=== PATIENT | male | born 1960 | race Caucasian/White ===

== ENCOUNTER 2022-02-17 09:43 | Day surgery (SDC) | payer MEDICARE ==
[~2022-02-17] VITALS: Ht 172.7 cm; Wt 100.9 kg
[2022-02-17] MEDS ORDERED: LIPITOR20 MG PO (10:47)
[2022-02-17] MEDS ORDERED: CBD OIL PO (10:48)
[2022-02-17 10:49] VITALS: BP 124/88; PULSE 85; TEMP 98.9
[2022-02-17 13:30] VITALS: BP 149/87; PULSE 79
[2022-02-17 13:45] VITALS: BP 157/85; PULSE 81
[2022-02-17 15:40] VITALS: BP 138/74; PULSE 81
--- NOTE | 2022-02-17 21:39 | NUR ---
1315 Pt returns from endo procedure via cart and RN assist to [facility]. Pt ambulates from cart to recliner with RN assist. Monitors on and alarms set. Call light within reach. Report received from RN. Pt alert and oriented. Pt requests muffin and juice. Pt denies any pain or nausea. Pt's present in room. 1325 Pt taking food and drink well. No complications noted. 1353 Discharge instructions given to pt and pt's . All questions answered to their satisfaction. Handed to pt are a thank you card and discharge information. 1355 Pt transferred out of the hospital via wheelchair and B[facility] [place] assist, to private vehicle driven by pt's .
== END 2022-02-17 13:55 | disposition home or self-care (01) ==
LOC: SDCO 09:43
DX: Z12.11 Encounter for screening for malignant neoplasm of colon (principal); D12.2 Benign neoplasm of ascending colon; D12.5 Benign neoplasm of sigmoid colon
CPT/HCPCS: J2704; J7120

== ENCOUNTER 2023-07-03 15:10 | Emergency (ER) | payer MEDICARE ==
[~2023-07-03] VITALS: Ht 172.7 cm; Wt 109.1 kg
[~2023-07-03 15:10] MED LIST: CBD OIL PO; LIPITOR20 MG PO
[2023-07-03 15:22] VITALS: TEMP 98.5
[2023-07-03] MEDS ORDERED: Ondansetron 4 MG/2 ML VIAL IV ONE (15:30)
[2023-07-03] MEDS ORDERED: NS 1,000 ML IV ONE (15:30)
[2023-07-03] MEDS ORDERED: Ketorolac 30 MG/ML VIAL IV ONE (15:30)
[2023-07-03 15:57] LABS: BASO % 0.1 % (0.0-2.0); EOS % 0.1 % (0.0-4.0); GRAN # 8.4 K/mm3 (1.4-6.5); GRAN % 70.7 % (42.2-75.2); HEMATOCRIT 46.8 % (42.0-52.0); HEMOGLOBIN 15.5 g/dl (13.5-18.0); LYMPH # 2.7 K/mm3 (1.2-3.4); LYMPH % 23.1 % (20.0-51.0); MEAN CELL VOLUME 87 fl (80.0-100.0); MEAN CORPUSCULAR HEMOGLOBIN 29 pg (27-31); MEAN CORPUSCULAR HGB CONC 33 g/dl (33.0-37.0); MEAN PLATELET VOLUME 8.7 fl (7.4-10.4); MONO # 0.7 K/mm3 (0.1-0.6); MONO % 5.6 % (1.7-9.3); PLATELET COUNT 323 K/mm3 (130-400); REDCELL DISTRIBUTION WIDTH-CV 13.6 % (11.5-14.5)
[2023-07-03 16:21] LABS: ALBUMIN 3.9 gm/dL (3.4-4.8); BILIRUBIN,TOTAL 0.3 mg/dL (0.2-1.2); CALCIUM 9.7 mg/dL (8.4-10.2); CREATININE, serum 0.72 mg/dL (0.72-1.25); POTASSIUM 3.9 mmol/L (3.5-4.5); TOTAL PROTEIN 7.5 gm/dL (6.2-8.1)
[2023-07-03 16:22] LABS: COLLECTION METHOD CLEAN CATCH
[2023-07-03] MEDS ORDERED: NS 100 ML IV SCH (16:33)
[2023-07-03] MEDS ORDERED: Iohexol 300 - 100 ML VIAL IV ONE (16:34)
[2023-07-03 16:42] LABS: SQUAMOUS EPITHELIAL 0-2 /hpf (0-10); URINE APPEARANCE Clear (CLEAR/HAZY); URINE BLOOD TRACE-INTACT (NEGATIVE); URINE COLOR Yellow (YELLOW); URINE GLUCOSE Negative (NEGATIVE); URINE KETONE Negative (NEGATIVE); URINE NITRATE Negative (NEGATIVE); URINE PROTEIN(semi-quant) Negative (BEGATIVE); URINE RBC 0-2 /hpf (0-2); URINE UROBILINOGEN 0.2 E.U/dL (0.2-1.0)
[2023-07-03 17:16] VITALS: PULSE 73
[2023-07-03] MEDS ORDERED: ULTRAM 50MG TAB50 MG PO (17:17)
[2023-07-03] MEDS ORDERED: ZOFRAN ODT4 MG PO (17:17)
[2023-07-03 17:35] VITALS: BP 163/89
== END 2023-07-03 17:37 | disposition home or self-care (01) ==
LOC: COL.ER 15:10
PROVIDERS: Internal Medicine
DX: N28.89 Other specified disorders of kidney and ureter (principal); E86.0 Dehydration
CPT/HCPCS: J1885; J2405; J7030; Q9967